=== PATIENT | female | born 1965 | race African-American/Black ===

== ENCOUNTER 2020-02-08 14:20 | Emergency (ER) | payer MEDICAID, OTHER ==
[~2020-02-08] VITALS: Ht 157.5 cm; Wt 61.7 kg
[2020-02-08 15:26] VITALS: BP 120/79
[2020-02-08] MEDS ORDERED: cefTRIAXone SOD 1,000 MG VL IM ONE (17:15)
[2020-02-08] MEDS ORDERED: methylPREDNISolone SOD SUCC 125 MG/2 ML VL IM ONE (17:15)
[2020-02-08] MEDS ORDERED: ACETAMINOPHEN 500 MG TAB PO ONE (17:15)
== END 2020-02-08 18:16 | disposition home or self-care (01) ==
LOC: ER 14:20
DX: U07.1 COVID-19 (principal); J12.89 Other viral pneumonia; S20.219A Contusion of unspecified front wall of thorax, initial encounter; W18.09XA Striking against other object with subsequent fall, initial encounter; Y93.89 Activity, other specified; Y92.89 Other specified places as the place of occurrence of the external cause; Y99.8 Other external cause status
CPT/HCPCS: 36415; 71046; 71250; 87426; 93005; 96372; 99285; J0696; J2930

== ENCOUNTER 2020-06-22 19:39 | Inpatient (IN) | payer MEDICAID ==
[~2020-06-22] VITALS: Ht 157.5 cm; Wt 59.0 kg
[2020-06-22] MEDS: POTASSIUM CHL 20MEQ/100ML 100 ML IV SCH (00:45)
[2020-06-22 21:55] LABS: Basophils # (auto) 0 10 ^3/uL (0-0.2); Basophils % (auto) 0.3 % (0.0-2.0); Eosinophils # (auto) 0.1 10 ^3/uL (0-0.8); Platelet Count (auto) 217 10^3/uL (140-450)
[2020-06-22 21:57] LABS: Eosinophils % (auto) 1.6 % (0.0-7.0); Hematocrit 45.9 % (36.0-46.0); Hemoglobin 15.8 g/dL (12.2-16.2); Lymphocytes % (auto) 13.1 % (10.0-50.0); Mean Corpuscular Hemoglobin 34.5 pg (28.0-32.0); Mean Corpuscular Hgb Conc. 34.3 g/dL (32.0-36.0); Mean Corpuscular Volume 100.4 fL (80.0-100.0); Neutrophils # (auto) 5.4 10 ^3/uL (1.6-8.6); Nucleated Red Blood Cells % 0.1 %; Red Blood Cells 4.57 10^6/uL (4.0-5.20); Red Cell Distribution Width 12.4 % (11.8-14.3); White Blood Cell 7.6 10^3/uL (4.4-10.8)
[2020-06-22 22:10] LABS: Urine Bacteria FEW /hpf (None Seen); Urine Blood Negative /uL (Negative); Urine Hyaline Cast FEW /lpf (0 - 2); Urine Mucus FEW (None Seen); Urine Specific Gravity 1.024 (1.001-1.035); Urine WBC 95 /hpf (0 - 5)
[2020-06-22 22:15] LABS: Albumin 3.5 g/dL (3.4-5.0); Amylase 625 U/L (25-115); Anion Gap 6 (5-15); Blood Urea Nitrogen 9 mg/dL (7-18); Carbon Dioxide 28 mmol/L (21-32); Chloride 100 mmol/L (98-107); Glucose 111 mg/dL (74-106); Magnesium 2.5 mg/dL (1.6-2.6); Sodium 134 mmol/L (136-145)
[2020-06-22 22:26] LABS: Alanine Aminotransferase 40 U/L (13-56); Alkaline Phosphatase 146 U/L (45-117); Aspartate Aminotransferase 38 U/L (15-37); BUN/Creatinine Ratio 12.2; Bilirubin, Total 0.9 mg/dL (0.2-1.0); GFR African American 105 mL/min; GFR Non-African American 87 mL/min; Lipase 5461 U/L (73-393); Total Protein 8.5 g/dL (6.4-8.2)
[2020-06-22 23:04] LABS: Potassium 2.9 mmol/L (3.5-5.1)
[2020-06-22] MEDS ORDERED: ONDANSETRON HCL 4 MG/2 ML VIAL IV ONE (23:45)
[2020-06-22] MEDS ORDERED: SODIUM CHLORIDE 0.9% 1,000 ML IV ONE (23:45)
[2020-06-22] MEDS ORDERED: cefTRIAXone 1GM/50ML D5W 50 ML IV ONE (23:45)
[2020-06-23] MEDS ORDERED: MORPHINE SULFATE 4 MG/ML SYR/VIAL IV ONE (00:15)
[2020-06-23 01:58] LABS: Alcohol, Urine < 3.0 mg/dL (0-10); Amphetamine Screen, Urine NEGATIVE (NEGATIVE); Barbiturate Scree,Urine NEGATIVE (NEGATIVE); Benzodiazephine Screen, Urine NEGATIVE (NEGATIVE); Cannabinoid Screen, Urine POSITIVE (NEGATIVE); Opiate Scree,Urine NEGATIVE (NEGATIVE); Phencyclidine Screen, Urine POSITIVE (NEGATIVE)
[2020-06-23] MEDS ORDERED: MORPHINE SULF INJ 2 MG/ML SYRINGE 1ML IV PRN ×2 (02:00)
[2020-06-23] MEDS ORDERED: NITROGLYCERIN 0.4 MG SL TAB SL PRN (02:00)
[2020-06-23] MEDS ORDERED: ONDANSETRON HCL 4 MG/2 ML VIAL IV PRN ×2 (02:00)
[2020-06-23] MEDS ORDERED: HYDROcodone-ACET 5/325MG TAB PO PRN (02:00)
[2020-06-23] MEDS ORDERED: SODIUM CHLORIDE 0.9% 1,000 ML IV SCH (02:00)
[2020-06-23 02:05] LABS: Cocaine Screen, Urine NEGATIVE (NEGATIVE)
[2020-06-23] MEDS: LACTATED RINGER'S 1,000 ML IV SCH ×4 (02:40→17:03)
[2020-06-23] MEDS: POTASSIUM CHL 20MEQ/100ML 100 ML IV SCH (02:40)
[2020-06-23 03:07] LABS: CRP High Sensitivity 11.9 mg/dL (< 0.3)
[2020-06-23 05:00] VITALS: BP 128/91
[2020-06-23] MEDS: MORPHINE SULF INJ 2 MG/ML SYRINGE 1ML IV PRN ×4 (05:25→21:58)
[2020-06-23] MEDS ORDERED: PNEUMOCOCCAL VACC POLYS 25 MCG/0.5 ML VIAL IM ONE (06:00)
[2020-06-23 08:00] VITALS: BP 100/78
[2020-06-23 08:45] VITALS: BP 100/78
[2020-06-23] MEDS: cefTRIAXone 1GM/50ML D5W 50 ML IV SCH (09:43)
[2020-06-23] MEDS: PANTOPRAZOLE 40 MG/10 ML VIAL INJ IV SCH (09:43)
[2020-06-23] MEDS ORDERED: LACTATED RINGER'S 1,000 ML IV SCH (11:00)
[2020-06-23 12:08] LABS: Albumin 2.6 g/dL (3.4-5.0); Calcium 7.9 mg/dL (8.5-10.1); Potassium 3.5 mmol/L (3.5-5.1)
[2020-06-23 12:17] LABS: Bilirubin, Total 0.5 mg/dL (0.2-1.0); Total Protein 6.6 g/dL (6.4-8.2)
[2020-06-23 13:00] VITALS: BP 109/77
[2020-06-23 17:13] VITALS: BP 124/72
[2020-06-23 23:05] VITALS: BP 117/82
[2020-06-24] MEDS: MORPHINE SULF INJ 2 MG/ML SYRINGE 1ML IV PRN ×5 (02:08→22:38)
[2020-06-24] MEDS: LACTATED RINGER'S 1,000 ML IV SCH ×3 (03:15→13:38)
[2020-06-24 05:48] VITALS: BP 117/79
[2020-06-24 05:53] LABS: Basophils # (auto) 0 10 ^3/uL (0-0.2); Basophils % (auto) 0.7 % (0.0-2.0); Eosinophils # (auto) 0.3 10 ^3/uL (0-0.8); Eosinophils % (auto) 5.7 % (0.0-7.0); Hemoglobin 12.3 g/dL (12.2-16.2); Lymphocytes # (auto) 1.2 10 ^3/uL (0.4-5.4); Lymphocytes % (auto) 23.5 % (10.0-50.0); Mean Corpuscular Hemoglobin 34.4 pg (28.0-32.0); Mean Corpuscular Hgb Conc. 34.1 g/dL (32.0-36.0); Mean Corpuscular Volume 100.7 fL (80.0-100.0); Monocytes # (auto) 0.9 10 ^3/uL (0-1.3); Monocytes % (auto) 16.6 % (0.0-12.0); Neutrophils # (auto) 2.8 10 ^3/uL (1.6-8.6); Neutrophils % (auto) 53.5 % (37.0-80.0); Nucleated Red Blood Cells % 0.1 %; Platelet Count (auto) 203 10^3/uL (140-450); Red Blood Cells 3.57 10^6/uL (4.0-5.20); Red Cell Distribution Width 12.2 % (11.8-14.3); White Blood Cell 5.2 10^3/uL (4.4-10.8)
[2020-06-24 06:22] LABS: Potassium 3.6 mmol/L (3.5-5.1)
[2020-06-24 06:35] LABS: Albumin 2.4 g/dL (3.4-5.0); BUN/Creatinine Ratio 8.5; Bilirubin, Total 0.6 mg/dL (0.2-1.0); Calcium 7.9 mg/dL (8.5-10.1); Total Protein 6.3 g/dL (6.4-8.2)
[2020-06-24 08:29] VITALS: BP 116/73
[2020-06-24] MEDS: cefTRIAXone 1GM/50ML D5W 50 ML IV SCH (09:30)
[2020-06-24] MEDS: PANTOPRAZOLE 40 MG/10 ML VIAL INJ IV SCH (09:31)
[2020-06-24 12:57] VITALS: BP 105/75
[2020-06-24 16:30] VITALS: BP 119/74
[2020-06-24 22:15] VITALS: BP 136/79
[2020-06-25] MEDS: ACETAMINOPHEN 500 MG TAB PO PRN ×2 (00:06→20:49)
[2020-06-25] MEDS: LACTATED RINGER'S 1,000 ML IV SCH ×2 (01:50→09:19)
[2020-06-25] MEDS: MORPHINE SULF INJ 2 MG/ML SYRINGE 1ML IV PRN ×3 (04:55→20:43)
[2020-06-25 05:26] VITALS: BP 111/68
[2020-06-25 07:37] LABS: Albumin 2.5 g/dL (3.4-5.0); BUN/Creatinine Ratio 4.9; Bilirubin, Total 0.6 mg/dL (0.2-1.0); Calcium 8.2 mg/dL (8.5-10.1); Total Protein 6.6 g/dL (6.4-8.2)
[2020-06-25 08:49] VITALS: BP 112/76
[2020-06-25] MEDS: cefTRIAXone 1GM/50ML D5W 50 ML IV SCH (09:18)
[2020-06-25] MEDS: PANTOPRAZOLE 40 MG/10 ML VIAL INJ IV SCH (09:18)
[2020-06-25] MEDS ORDERED: POTASSIUM CHLORIDE 40 MEQ, LIDOCAINE 1% (LOCAL ANESTH.) 4 ML in SODIUM CHL 0.9% 250 ML IV ONE (10:30)
[2020-06-25] MEDS ORDERED: POTASSIUM CHL 20 Meq TABLET PO ONE (10:30)
[2020-06-25 12:44] VITALS: BP 118/79
[2020-06-25 17:00] VITALS: BP 123/84
[2020-06-25 22:00] VITALS: BP 132/82
[2020-06-25] MEDS: POTASSIUM CHL 20 Meq TABLET PO SCH (22:05)
[2020-06-26 05:00] VITALS: BP 109/72
[2020-06-26] MEDS: LACTATED RINGER'S 1,000 ML IV SCH (05:13)
[2020-06-26 06:14] LABS: Albumin 2.5 g/dL (3.4-5.0); Calcium 8.4 mg/dL (8.5-10.1)
[2020-06-26 06:18] LABS: BUN/Creatinine Ratio 4.7; Bilirubin, Total 0.8 mg/dL (0.2-1.0)
[2020-06-26] MEDS: MORPHINE SULF INJ 2 MG/ML SYRINGE 1ML IV PRN (06:44)
[2020-06-26] MEDS: cefTRIAXone 1GM/50ML D5W 50 ML IV SCH (08:30)
[2020-06-26] MEDS: PANTOPRAZOLE 40 MG/10 ML VIAL INJ IV SCH (08:30)
[2020-06-26] MEDS: POTASSIUM CHL 20 Meq TABLET PO SCH (08:31)
[2020-06-26 08:41] VITALS: BP 119/76
== END 2020-06-26 11:15 | disposition home or self-care (01) | DRG 282 ==
LOC: ER 19:39 → TELE 06-23 02:00 → TELE-WESTW 06-23 04:30
PROVIDERS: ADMIT Nurse Practitioner Acute Care; ATTEND Internal Medicine
DX: K85.20 Alcohol induced acute pancreatitis without necrosis or infection (principal); E43 Unspecified severe protein-calorie malnutrition; K70.9 Alcoholic liver disease, unspecified; E87.6 Hypokalemia; K76.0 Fatty (change of) liver, not elsewhere classified; E87.1 Hypo-osmolality and hyponatremia; F17.210 Nicotine dependence, cigarettes, uncomplicated; N30.00 Acute cystitis without hematuria; K35.80 Unspecified acute appendicitis; Z20.822 Contact with and (suspected) exposure to COVID-19; Z68.23 Body mass index [BMI] 23.0-23.9, adult; K80.80 Other cholelithiasis without obstruction
CPT/HCPCS: 36415; 74176; 76705; 80053; 80061; 80307; 80320; 81001; 82150; 83690; 83735; 84484; 84702; 85025; 86141; 87086; 87426; 93005; 96365; 96366; 96367; 96375; 99291; C9113; G0378; J0696; J2001; J2405; J3480

== ENCOUNTER 2021-01-06 11:12 | Inpatient (IN) | payer MEDICAID ==
[~2021-01-06] VITALS: Ht 157.5 cm; Wt 59.6 kg
[2021-01-06] MEDS ORDERED: ONDANSETRON HCL 4 MG/2 ML VIAL IV ONE (11:30)
[2021-01-06] MEDS ORDERED: SODIUM CHLORIDE 0.9% 1,000 ML IVB ONE (11:30)
[2021-01-06] MEDS ORDERED: PANTOPRAZOLE 40 MG/10 ML VIAL INJ IV ONE (11:30)
[2021-01-06] MEDS ORDERED: MORPHINE SULFATE 4 MG/ML SYR/VIAL IV ONE (11:30)
[2021-01-06 12:17] LABS: Basophils # (auto) 0 10 ^3/uL (0-0.2); Basophils % (auto) 0.4 % (0.0-2.0); Eosinophils # (auto) 0.1 10 ^3/uL (0-0.8); Eosinophils % (auto) 1.6 % (0.0-7.0); Hematocrit 42.1 % (36.0-46.0); Hemoglobin 14.1 g/dL (12.2-16.2); Lymphocytes # (auto) 1.2 10 ^3/uL (0.4-5.4); Mean Corpuscular Hemoglobin 33.2 pg (28.0-32.0); Mean Corpuscular Hgb Conc. 33.5 g/dL (32.0-36.0); Mean Corpuscular Volume 99.1 fL (80.0-100.0); Monocytes # (auto) 0.5 10 ^3/uL (0-1.3); Monocytes % (auto) 7.9 % (0.0-12.0); Neutrophils # (auto) 4.3 10 ^3/uL (1.6-8.6); Neutrophils % (auto) 70.1 % (37.0-80.0); Nucleated Red Blood Cells % 0.2 %; Red Blood Cells 4.25 10^6/uL (4.0-5.20); Red Cell Distribution Width 12.9 % (11.8-14.3); White Blood Cell 6.2 10^3/uL (4.4-10.8)
[2021-01-06 12:34] LABS: Albumin 3.6 g/dL (3.4-5.0); Potassium 4.1 mmol/L (3.5-5.1)
[2021-01-06 12:38] LABS: BUN/Creatinine Ratio 10.6; Bilirubin, Total 0.5 mg/dL (0.2-1.0); Total Protein 8.5 g/dL (6.4-8.2)
[2021-01-06 13:20] LABS: Urine Bacteria FEW /hpf (None Seen); Urine Blood Negative /uL (Negative); Urine Mucus FEW (None Seen); Urine Specific Gravity 1.023 (1.001-1.035); Urine WBC 15 /hpf (0 - 5)
[2021-01-06] MEDS ORDERED: SODIUM CHLORIDE 0.9% 1,000 ML IV SCH (14:30)
[2021-01-06] MEDS ORDERED: NITROGLYCERIN 0.4 MG SL TAB SL PRN (14:30)
[2021-01-06] MEDS ORDERED: MORPHINE SULFATE INJECTION 2 MG/ML SYRG IV PRN (14:30)
[2021-01-06] MEDS ORDERED: HYDROcodone-ACET 5/325MG TAB PO PRN (14:30)
[2021-01-06] MEDS ORDERED: ACETAMINOPHEN 325 MG TAB PO PRN (14:30)
[2021-01-06] MEDS ORDERED: TEMAZEPAM 15 MG CAP PO PRN (14:30)
[2021-01-06] MEDS ORDERED: DOCUSATE SOD 100 MG CAP PO PRN (14:30)
[2021-01-06] MEDS: MULTIPLE VITAMIN TAB PO SCH (15:37)
[2021-01-06] MEDS: ENOXAPARIN SOD 40 MG/0.4 ML SYRINGE SC SCH (15:37)
[2021-01-06] MEDS: LACTATED RINGER'S 1,000 ML IV SCH ×2 (17:21→23:45)
[2021-01-06] MEDS: MORPHINE SULFATE INJECTION 2 MG/ML SYRG IV PRN (20:46)
[2021-01-06] MEDS: ASCORBIC ACID 500 MG TAB PO SCH (20:53)
[2021-01-06 22:00] VITALS: BP 126/89
[2021-01-07] MEDS: LACTATED RINGER'S 1,000 ML IV SCH ×3 (01:45→18:30)
[2021-01-07] MEDS: MORPHINE SULFATE INJECTION 2 MG/ML SYRG IV PRN ×4 (02:00→19:57)
[2021-01-07 05:22] VITALS: BP 113/81
[2021-01-07 07:31] LABS: Basophils # (auto) 0 10 ^3/uL (0-0.2); Basophils % (auto) 0.5 % (0.0-2.0); Eosinophils # (auto) 0.1 10 ^3/uL (0-0.8); Eosinophils % (auto) 2.1 % (0.0-7.0); Hematocrit 36.1 % (36.0-46.0); Lymphocytes # (auto) 1.2 10 ^3/uL (0.4-5.4); Lymphocytes % (auto) 25.5 % (10.0-50.0); Mean Corpuscular Hemoglobin 32.7 pg (28.0-32.0); Mean Corpuscular Hgb Conc. 33.3 g/dL (32.0-36.0); Mean Corpuscular Volume 98.3 fL (80.0-100.0); Monocytes # (auto) 0.6 10 ^3/uL (0-1.3); Monocytes % (auto) 13.9 % (0.0-12.0); Neutrophils # (auto) 2.7 10 ^3/uL (1.6-8.6); Nucleated Red Blood Cells % 0.2 %; Red Blood Cells 3.67 10^6/uL (4.0-5.20); Red Cell Distribution Width 12.6 % (11.8-14.3); White Blood Cell 4.6 10^3/uL (4.4-10.8)
[2021-01-07 07:46] LABS: Albumin 2.8 g/dL (3.4-5.0); Calcium 8.2 mg/dL (8.5-10.1); Potassium 3.6 mmol/L (3.5-5.1)
[2021-01-07 07:50] LABS: BUN/Creatinine Ratio 18.9; Bilirubin, Total 0.4 mg/dL (0.2-1.0); Total Protein 6.4 g/dL (6.4-8.2)
[2021-01-07] MEDS: ENOXAPARIN SOD 40 MG/0.4 ML SYRINGE SC SCH (09:03)
[2021-01-07] MEDS: MULTIPLE VITAMIN TAB PO SCH (09:08)
[2021-01-07] MEDS: ZINC SULFATE 220mg CAP or TAB PO SCH (09:08)
[2021-01-07] MEDS: ASCORBIC ACID 500 MG TAB PO SCH ×2 (09:08→21:18)
[2021-01-07] MEDS: ONDANSETRON HCL 4 MG/2 ML VIAL IV PRN ×2 (11:11→19:57)
[2021-01-07 12:41] VITALS: BP 130/79
[2021-01-07 16:46] VITALS: BP 125/78
[2021-01-07] MEDS: cefTRIAXone 1GM/50ML D5W 50 ML IV SCH (17:14)
[2021-01-07 22:00] VITALS: BP 128/77
[2021-01-08] MEDS: ONDANSETRON HCL 4 MG/2 ML VIAL IV PRN ×5 (01:50→22:08)
[2021-01-08] MEDS: MORPHINE SULFATE INJECTION 2 MG/ML SYRG IV PRN ×5 (01:58→22:09)
[2021-01-08] MEDS: LACTATED RINGER'S 1,000 ML IV SCH ×2 (04:23→15:45)
[2021-01-08 05:00] VITALS: BP 117/76
[2021-01-08 08:39] VITALS: BP 123/69
[2021-01-08] MEDS: ENOXAPARIN SOD 40 MG/0.4 ML SYRINGE SC SCH (08:43)
[2021-01-08] MEDS: MULTIPLE VITAMIN TAB PO SCH (08:43)
[2021-01-08] MEDS: ASCORBIC ACID 500 MG TAB PO SCH ×2 (08:43→21:06)
[2021-01-08] MEDS: ZINC SULFATE 220mg CAP or TAB PO SCH (08:43)
[2021-01-08] MEDS: cefTRIAXone 1GM/50ML D5W 50 ML IV SCH (08:44)
[2021-01-08 13:00] VITALS: BP 136/84
[2021-01-08 16:50] VITALS: BP 126/77
[2021-01-08 22:00] VITALS: BP 134/86
[2021-01-09] MEDS: LACTATED RINGER'S 1,000 ML IV SCH ×4 (01:04→15:45)
[2021-01-09 05:00] VITALS: BP 127/80
[2021-01-09 09:00] VITALS: BP 121/73
[2021-01-09] MEDS: cefTRIAXone 1GM/50ML D5W 50 ML IV SCH (09:03)
[2021-01-09] MEDS: MULTIPLE VITAMIN TAB PO SCH (09:04)
[2021-01-09] MEDS: ASCORBIC ACID 500 MG TAB PO SCH ×2 (09:04→22:00)
[2021-01-09] MEDS: ZINC SULFATE 220mg CAP or TAB PO SCH (09:04)
[2021-01-09] MEDS: ENOXAPARIN SOD 40 MG/0.4 ML SYRINGE SC SCH (09:05)
[2021-01-09] MEDS: MORPHINE SULFATE INJECTION 2 MG/ML SYRG IV PRN ×3 (09:22→23:30)
[2021-01-09 13:00] VITALS: BP 142/89
[2021-01-09 16:26] LABS: Albumin 2.9 g/dL (3.4-5.0); Calcium 8.2 mg/dL (8.5-10.1); Potassium 3.1 mmol/L (3.5-5.1)
[2021-01-09 16:30] LABS: BUN/Creatinine Ratio 4.8; Bilirubin, Total 0.3 mg/dL (0.2-1.0)
[2021-01-09 17:00] VITALS: BP 133/82
[2021-01-09 22:00] VITALS: BP 147/95
[2021-01-10 05:00] VITALS: BP 125/82
[2021-01-10 07:14] LABS: Potassium 3.3 mmol/L (3.5-5.1)
[2021-01-10 07:30] LABS: Albumin 2.6 g/dL (3.4-5.0); BUN/Creatinine Ratio 6.1; Bilirubin, Total 0.2 mg/dL (0.2-1.0); Calcium 8.4 mg/dL (8.5-10.1); Total Protein 6.2 g/dL (6.4-8.2)
[2021-01-10] MEDS: LACTATED RINGER'S 1,000 ML IV SCH (07:45)
[2021-01-10 08:35] VITALS: BP 120/83
[2021-01-10] MEDS: ENOXAPARIN SOD 40 MG/0.4 ML SYRINGE SC SCH (08:58)
[2021-01-10] MEDS: MULTIPLE VITAMIN TAB PO SCH (08:58)
[2021-01-10] MEDS: ZINC SULFATE 220mg CAP or TAB PO SCH (08:58)
[2021-01-10] MEDS: cefTRIAXone 1GM/50ML D5W 50 ML IV SCH (08:58)
[2021-01-10] MEDS: ASCORBIC ACID 500 MG TAB PO SCH (08:58)
[2021-01-10 12:06] LABS: Basophils # (auto) 0 10 ^3/uL (0-0.2); Basophils % (auto) 0.7 % (0.0-2.0); Eosinophils # (auto) 0.1 10 ^3/uL (0-0.8); Eosinophils % (auto) 3.5 % (0.0-7.0); Hemoglobin 12.3 g/dL (12.2-16.2); Lymphocytes # (auto) 1.3 10 ^3/uL (0.4-5.4); Lymphocytes % (auto) 31.4 % (10.0-50.0); Mean Corpuscular Hemoglobin 33.1 pg (28.0-32.0); Mean Corpuscular Hgb Conc. 34.2 g/dL (32.0-36.0); Mean Corpuscular Volume 96.8 fL (80.0-100.0); Monocytes # (auto) 0.5 10 ^3/uL (0-1.3); Neutrophils # (auto) 2.2 10 ^3/uL (1.6-8.6); Neutrophils % (auto) 52.4 % (37.0-80.0); Nucleated Red Blood Cells % 0.1 %; Red Blood Cells 3.72 10^6/uL (4.0-5.20); Red Cell Distribution Width 12.5 % (11.8-14.3); White Blood Cell 4.2 10^3/uL (4.4-10.8)
[2021-01-10 13:00] VITALS: BP 143/80
[2021-01-10] MEDS ORDERED: POTASSIUM CHL 20 Meq TABLET PO ONE (15:45)
[2021-01-10 16:15] VITALS: BP 141/96
== END 2021-01-10 16:30 | disposition home or self-care (01) | DRG 282 ==
LOC: ER 11:12 → TELE 14:18 → TELE-CENTR 20:00
PROVIDERS: ADMIT Internal Medicine; ATTEND Internal Medicine
DX: K85.20 Alcohol induced acute pancreatitis without necrosis or infection (principal); F12.10 Cannabis abuse, uncomplicated; N39.0 Urinary tract infection, site not specified; F17.210 Nicotine dependence, cigarettes, uncomplicated; Z20.822 Contact with and (suspected) exposure to COVID-19
CPT/HCPCS: 36415; 74176; 80053; 81001; 82150; 83690; 85025; 87426; 96361; 96372; 96374; 96375; C9113; G0378; J0696; J2405

== ENCOUNTER 2021-02-05 13:15 | Emergency (ER) | payer MEDICAID ==
[~2021-02-05] VITALS: Ht 157.5 cm; Wt 59.0 kg
[2021-02-05 14:32] VITALS: BP 137/107
== END 2021-02-05 16:24 | disposition home or self-care (01) ==
LOC: ER 13:15
DX: M50.322 Other cervical disc degeneration at C5-C6 level (principal); F17.210 Nicotine dependence, cigarettes, uncomplicated; F12.10 Cannabis abuse, uncomplicated
CPT/HCPCS: 72040

== ENCOUNTER 2021-06-13 15:24 | Emergency (ER) | payer MEDICAID ==
[~2021-06-13] VITALS: Ht 157.5 cm; Wt 56.7 kg
[2021-06-13] MEDS ORDERED: PANTOPRAZOLE 40 MG/10 ML VIAL INJ IV ONE (16:00)
[2021-06-13] MEDS ORDERED: MORPHINE SULFATE 4 MG/ML SYR/VIAL IV ONE (16:00)
[2021-06-13] MEDS ORDERED: ONDANSETRON HCL 4 MG/2 ML VIAL IV ONE (16:00)
[2021-06-13] MEDS ORDERED: SODIUM CHLORIDE 0.9% 500 ML IVB ONE (16:00)
[2021-06-13 16:46] LABS: Basophils # (auto) 0 10 ^3/uL (0-0.2); Basophils % (auto) 0.8 % (0.0-2.0); Eosinophils # (auto) 0.1 10 ^3/uL (0-0.8); Eosinophils % (auto) 2.9 % (0.0-7.0); Hematocrit 40.1 % (36.0-46.0); Hemoglobin 13.8 g/dL (12.2-16.2); Lymphocytes # (auto) 0.9 10 ^3/uL (0.4-5.4); Lymphocytes % (auto) 24.4 % (10.0-50.0); Mean Corpuscular Hemoglobin 32.8 pg (28.0-32.0); Mean Corpuscular Hgb Conc. 34.5 g/dL (32.0-36.0); Mean Corpuscular Volume 95.3 fL (80.0-100.0); Monocytes # (auto) 0.3 10 ^3/uL (0-1.3); Monocytes % (auto) 7.8 % (0.0-12.0); Neutrophils # (auto) 2.4 10 ^3/uL (1.6-8.6); Neutrophils % (auto) 64.1 % (37.0-80.0); Nucleated Red Blood Cells % 0.2 %; Red Blood Cells 4.21 10^6/uL (4.0-5.20); Red Cell Distribution Width 13.7 % (11.8-14.3); White Blood Cell 3.7 10^3/uL (4.4-10.8)
[2021-06-13 17:03] LABS: Albumin 3.4 g/dL (3.4-5.0); Potassium 3.9 mmol/L (3.5-5.1)
[2021-06-13 17:06] LABS: Bilirubin, Total 0.2 mg/dL (0.2-1.0); Total Protein 7.7 g/dL (6.4-8.2)
[2021-06-13 18:05] LABS: Urine Bacteria FEW /hpf (None Seen); Urine Blood Negative /uL (Negative); Urine Mucus FEW (None Seen); Urine WBC 96 /hpf (0 - 5)
[2021-06-13] MEDS ORDERED: NITR-87 PO (18:21)
[2021-06-13] MEDS ORDERED: TRAM-297 PO (18:21)
[2021-06-13 19:06] VITALS: BP 110/71
[2021-06-13] MEDS ORDERED: ONDANSETRON ODT 4 MG TAB PO ONE (19:15)
[2021-06-13] MEDS ORDERED: PANTOPRAZOLE 40 MG TAB PO ONE (19:15)
== END 2021-06-13 19:26 | disposition home or self-care (01) ==
LOC: ER 15:24
DX: N39.0 Urinary tract infection, site not specified (principal); F12.10 Cannabis abuse, uncomplicated; F17.210 Nicotine dependence, cigarettes, uncomplicated
CPT/HCPCS: 36415; 74176; 80053; 81001; 82150; 83690; 85025; 93005; 99285; Q0162